=== PATIENT | female | born 1985 | race Caucasian/White ===

== ENCOUNTER 2018-06-08 08:35 | Emergency (ER) | payer SELFPAY ==
[2018-06-08 08:42] VITALS: BMI 31.8
--- NOTE | 2018-06-08 08:58 | PDOC ---
History of Present Illness - General Chief Complaint: Pain Stated Complaint: PAIN Time Seen by Provider: 06/08/18 08:58 - History of Present Illness Initial Comments: 06/08/18 09:25 Ms. Granda is a 32 yo female w/ pmh of distant colitis episode and recent dx of fibroids 3 months ago who presents for evaluation of 1 day history of significant RLQ abdominal pain patient reports is consistent w/ her typical fibroid pains however has increased. Patient reports she has previously been told by her TIE PULLER (name unknown) that the fibroids are growing and pain may increase. Patient started her period yesterday as expected and reports she additionally had 1 large clot noted this morning on her pad. The patient denies chest pain, shortness of breath, headache and dizziness. Denies fever, chills, nausea, vomit, diarrhea and constipation. Denies dysuria, frequency, urgency and hematuria. Allergies: Tylenol (hives and vomiting) Past History - Past Medical History Allergies/Adverse Reactions: Allergies Allergy/AdvReac Type Severity Reaction Status Date / Time acetaminophen [From Tylenol] Allergy Intermediate Rash Verified 06/08/18 08:41 Home Medications: Ambulatory Orders Ibuprofen [Motrin -] 600 mg PO TID #21 tablet 06/08/18 COPD: No GI Disorders: Yes (CHOLITIS) - Immunization History Immunization Up to Date: Yes - Suicide/Smoking/Psychosocial Hx Smoking History: Never smoked Number of Cigarettes Smoked Daily: 2 Information on smoking cessation initiated: No Hx Alcohol Use: Yes Drug/Substance Use Hx: No Review of Systems - Review of Systems Comments:: 06/08/18 09:30 GENERAL/CONSTITUTIONAL: No fever or chills. No weakness. HEAD, EYES, EARS, NOSE AND THROAT: No change in vision. No ear pain or discharge. No sore throat. CARDIOVASCULAR: No chest pain or shortness of breath RESPIRATORY: No cough, wheezing, or hemoptysis. GASTROINTESTINAL: No nausea, vomiting, diarrhea or constipation. GENITOURINARY: +1 day of expected vaginal bleeding c/w period. Also pain/ pressure with urination x1 day. MUSCULOSKELETAL: No joint or muscle swelling or pain. No neck or back pain. SKIN: No rash NEUROLOGIC: No headache, vertigo, loss of consciousness, or change in strength/ sensation. ENDOCRINE: No increased thirst. No abnormal weight change HEMATOLOGIC/LYMPHATIC: No anemia, easy bleeding, or history of blood clots. ALLERGIC/IMMUNOLOGIC: No hives or skin allergy. *Physical Exam - Vital Signs Last Vital Signs Temp Pulse Resp BP Pulse Ox 97.7 F 99 H 18 111/61 99 06/08/18 08:37 06/08/18 08:37 06/08/18 08:37 06/08/18 08:37 06/08/18 08:37 - Physical Exam Comments: 06/08/18 09:30 GENERAL: Awake, alert, and fully oriented, in no acute distress HEAD: No signs of trauma, normocephalic, atraumatic EYES: PERRLA, EOMI, sclera anicteric, conjunctiva clear ENT: Auricles normal inspection, hearing grossly normal, nares patent, oropharynx clear without exudates. Moist mucosa NECK: Normal ROM, supple, no lymphadenopathy, JVD, or masses LUNGS: No distress, speaks full sentences, clear to auscultation bilaterally HEART: Regular rate and rhythm, normal S1 and S2, no murmurs, rubs or gallops, peripheral pulses normal and equal bilaterally. ABDOMEN: Soft, nontender, normoactive bowel sounds. No guarding, no rebound. No masses EXTREMITIES: Normal inspection, Normal range of motion, no edema. No clubbing or cyanosis. NEUROLOGICAL: Cranial nerves II through XII grossly intact. Normal speech, normal gait, no focal sensorimotor deficits SKIN: Warm, Dry, normal turgor, no rashes or lesions noted. : +Right adnexal tenderness. Blood noted in vaginal vault c/w menstrual cycle. No CMT, Os closed. ED Treatment Course - LABORATORY CBC & Chemistry Diagram: 06/08/18 09:45 06/08/18 09:45 Medical Decision Making - Medical Decision Making 06/08/18 11:27 Ms. Granda is a 32 yo female w/ pmh as described who presents for evaluation of RLQ pain. Patient reporting she has had this before due to known fibroids however pain has increased. Patient currently on day 1 of expected menstrual cycle. Patient confirmed not as below and toradol given for pain control w/ reduction in symptoms. TVUS for evaluation significant for 3.7x3.6x4.0cm right ovarian echogenic mass (hemorrhagic vs. solid) and left ovarian 2.1x2.9x2.8 complex cystic mass most likely a hemorrhagic cyst. 06/08/18 15:00 Patient US as above, CT abdomen/pelvis ordered for further evaluation to r/o emergent causes of RLQ pain. CT negative for acute process and revealed 2 large adnexal cysts as above. Discussed with patient that she will need to f/u w/ OB/ BLOCK OPERATOR for further evaluation as well as return precautions and risk for torsion. Will proscribe pain control to patient's pharmacy and discharge for outpatient evaluation. Patient verbalized understanding and agreement and will comply. *DC/Admit/Observation/Transfer Diagnosis at time of Disposition: Ovarian cyst Qualifiers: Laterality: bilateral Qualified Code(s): N83.201 - Unspecified ovarian cyst, right side - Discharge Dispostion Disposition: HOME - Prescriptions Prescriptions: Ibuprofen [Motrin -] 600 mg PO TID #21 tablet - Referrals Referrals: Erasmo Alvarenga MD [Staff Physician] - - Patient Instructions Printed Discharge Instructions: DI for Ovarian Cyst Additional Instructions: You were evaluated today in the ER for your abdominal pain and found to have bilateral ovarian cysts. More details are available on the CT and ultrasound reads we also gave to you. No emergent process was found at this time. Your pain was controlled with toradol. We sent a prescription to your pharmacy for pain control - please take all medications as proscribed. Follow-up with TIE PULLER as soon as possible. Return to ER if any increase in pain, fever, chills, or other concerning symptoms. Print Language: VIETNAMESE - Post Discharge Activity
[2018-06-08 09:55] LABS: BASO % 0.3 % (0-2.0); EOS % 0.2 % (0-4.5); HEMATOCRIT 42.2 % (32.4-45.2); HEMOGLOBIN 13.9 GM/dL (10.7-15.3); LYMPH % 8.6 % (8-40); MCHC 32.9 g/dl (32.0-36.0); MEAN PLT VOLUME 10.4 fl (7.5-11.1); MONO % 3.7 % (3.8-10.2); NEUT % 87.2 % (42.8-82.8); PLATELET COUNT 216 K/MM3 (134-434); RBC 4.63 M/mm3 (3.60-5.2); RDW 13.4 % (11.6-15.6); WHITE BLOOD COUNT 14.5 K/mm3 (4.0-10.0)
[2018-06-08 09:59] LABS: HCG,QUALITATIVE URINE Negative
[2018-06-08] MEDS ORDERED: KETOROLAC TROMETHAMINE 30 MG/1 ML VIAL IVPUSH ONE (09:59)
[2018-06-08] MEDS ORDERED: KETOROLAC TROMETHAMINE 30 MG/1 ML VIAL ONE (10:01)
[2018-06-08 10:08] LABS: URINE APPEARANCE CLEAR; URINE BILIRUBIN NEGATIVE (<2.0 mg/dL); URINE COLOR YELLOW; URINE GLUCOSE (UA) NEGATIVE (NEGATIVE); URINE KETONE NEGATIVE (NEGATIVE); URINE LEUK ESTERASE NEGATIVE (NEGATIVE); URINE NITRITE NEGATIVE (NEGATIVE); URINE PROTEIN NEGATIVE (NEGATIVE); URINE UROBILINOGEN NEGATIVE mg/dL (0.2-1.0)
[2018-06-08 10:10] LABS: EPI CELLS RARE /HPF (FEW); URINE MUCUS MANY
[2018-06-08 10:21] LABS: ANION GAP 9 MMOL/L (8-16); BLOOD UREA NITROGEN 18 mg/dL (7-18); CALCIUM 8.9 mg/dL (8.5-10.1); CHLORIDE 107 mmol/L (98-107); CO2 25 mmol/L (21-32); CREATININE 0.6 mg/dL (0.55-1.02); GLUCOSE,RANDOM 111 mg/dL (74-106); POTASSIUM 4.1 mmol/L (3.5-5.1); SGOT/AST 16 U/L (15-37); SGPT/ALT 51 U/L (13-61); SODIUM 141 mmol/L (136-145)
[2018-06-08 10:23] LABS: ALK PHOS 65 U/L (45-117); BILIRUBIN,TOTAL 0.3 mg/dL (0.2-1.0); TOT PROT 7.6 g/dl (6.4-8.2)
[2018-06-08] MEDS ORDERED: SODIUM CHLORIDE 0.9% 1000 ML INFUS.BAG IV ONE (12:11)
--- NOTE | 2018-06-08 12:44 | PDOC ---
Attending Attestation - Resident Resident Name: Hadley Hope - ED Attending Attestation I have performed the following: I have examined & evaluated the patient, The case was reviewed & discussed with the resident, I agree w/resident's findings & plan, Exceptions are as noted - HPI HPI: 06/08/18 12:41 32 yo F with h/o fibroids here with c/o rlq pain. has had similar pain in the past but never this severe. no f/c no urinary complaints. is currently having bleeding. does usually get pain with periods. no h/o abd surgeries. no change to stool no mod factors. - Physicial Exam PE: 06/08/18 12:42 awake alert lungs clear bilaterally heart rrr no mrg. abd soft luq, llq and rlq ttp. no rebound no guarding. ext wwp. skin warm and dry. nuero alert oriented c 3. - Medical Decision Making 06/08/18 12:43 differential ovarian cyst, torsion, fibroids, endometriosis, appendicitis. uti pyelo. plan tvus. labs ua ucg. reassess TVUS with ovarian mass, vs. cyst. pt with diffuse tenderness. bp 87/ 50, and wbc 14. will obtain ct to better assess. repeat bp was 105/72. 06/08/18 15:09 tvus results with adnexal cyst 5 x 4 cm. clinically no signs of torsion. ct a/p shows ovarian cyst., normal appendix. will d/c home. d/w dr. Aburto Ob/ home day care provider, states pt can followup. d/w patient, will follow up with her own station worker.
[2018-06-08 15:14] VITALS: BP 108/67; PULSE 92; TEMP 98.7
== END 2018-06-08 16:26 | disposition home or self-care (01) ==
LOC: JER 08:35
PROC: 3E033NZ Introduction of Analgesics, Hypnotics, Sedatives into Peripheral Vein, Percutaneous Approach (ICD-10-PCS; principal; 2018-06-08)
DX: N83.201 Unspecified ovarian cyst, right side (principal)
CPT/HCPCS: 36415; 74177-TC; 76830-TC; 80053; 81003; 81015; 84703; 85025; 87086; 99282-25; J7030